=== PATIENT | male | born 1950 | race Caucasian/White ===

== ENCOUNTER 2020-05-27 17:24 | Inpatient (IN) ==
[2020-05-27] MEDS ORDERED: (Dulaglutide [Trulicity] 1.5 MG) SQ SCH (19:00)
[2020-05-27] MEDS ORDERED: (Alendronate Sodium 70 MG) PO SCH (19:00)
[2020-05-27] MEDS: *HR* Metformin 500 MG TABLET PO SCH (20:20)
[2020-05-27] MEDS: Spironolactone 25 MG TABLET PO SCH (20:22)
[2020-05-27] MEDS: Melatonin 3 MG TABLET PO PRN (23:15)
[2020-05-28] MEDS: *HR* Enoxaparin 40 MG/0.4 ML SYRINGE SQ SCH (04:46)
[2020-05-28 05:45] LABS: Basophils % 0.1 %; Eosinophils # 0.2 K/mcL (0.0-0.6); Hematocrit 38.8 % (37.5-50.1); Hemoglobin 12.4 g/dL (12.9-16.9); Immature Granulocytes % 6.7 % (0-4); Lymphocytes # 2.1 K/mcL (0.6-4.6); Lymphocytes % 11.4 %; Mean Corpuscular Hemoglobin 29.7 pg (28.0-33.3); Mean Platelet Volume 9.6 fL (9.4-12.4); Monocytes # 1.2 K/mcL (0.0-1.3); Monocytes % 6.7 %; Neutrophils # 13.5 K/mcL (1.6-8.9); Platelet Count 754 K/mcL (140-400); Red Blood Count 4.17 M/mcL (4.19-5.50); Red Cell Distribution Width 13.5 % (11.5-14.5); Segmented Neutrophils % 74.1 %; White Blood Count 18.2 K/mcL (4.3-11.1)
[2020-05-28 06:00] LABS: Alanine Aminotransferase 45 Units/L (7-52); Alkaline Phosphatase 65 Units/L (34-104); Aspartate Amino Transferase 21 Units/L (13-39); BUN/Creatinine Ratio 32 (6-26); Bilirubin,Total 0.4 mg/dL (0.3-1.0); Blood Urea Nitrogen 29 mg/dL (8-23); Calcium 8.7 mg/dL (8.6-10.3); Carbon Dioxide 28 mEq/L (23-29); Chloride 97 mEq/L (98-107); Glucose 194 mg/dL (70-105); Magnesium 1.7 mg/dL (1.6-2.6); Osmolality,Calculated 285 (280-300); Potassium 4.1 mEq/L (3.5-5.1); Sodium 132 mEq/L (136-145); eGFR For African Americans > 60 (> 60); eGFR For Non-African Americans > 60 (> 60)
[2020-05-28] MEDS ORDERED: D5% in Water 1,000 ML IVC PRN (07:38)
[2020-05-28] MEDS ORDERED: *HR* Dextrose 50 % in Water (Vial) 50 ML VIAL IVP PRN (07:38)
[2020-05-28] MEDS ORDERED: Dextrose Gel 15 GM/37.5 ML TUBE PO PRN ×2 (07:38)
[2020-05-28 08:58] LABS: Ferritin 247 ng/mL (20-250)
[2020-05-28 09:43] LABS: C-Reactive Protein 14 mg/L (Less than 10)
[2020-05-28] MEDS: Furosemide 40 MG/4 ML VIAL IVP SCH (09:46)
[2020-05-28] MEDS: Cholecalciferol (D-3) 1,000 UNIT (25MCG) TABLET PO SCH (09:46)
[2020-05-28] MEDS: Aspirin Enteric Coated 81 MG Tablet PO SCH (09:46)
[2020-05-28] MEDS: Insulin LISPRO 300 UNITS/3 ML VIAL SUBQ SCH ×2 (12:37→16:58)
[2020-05-28] MEDS ORDERED: Ondansetron 4 MG/2 ML VIAL IVP PRN (13:41)
[2020-05-28] MEDS ORDERED: Ondansetron ODT 4 MG TAB.RAPDIS SL PRN (13:41)
[2020-05-28] MEDS ORDERED: MOM Conc 10 ML UD.LIQ PO PRN (13:43)
[2020-05-28] MEDS: levoFLOXacin 750 MG TABLET PO SCH (14:20)
[2020-05-28] MEDS: dexAMETHasone 4 MG TABLET PO SCH (14:20)
[2020-05-28] MEDS: Ipratropium 1 PUFF INHALER IH SCH ×2 (15:18→19:41)
[2020-05-28] MEDS: Spironolactone 25 MG TABLET PO SCH (16:57)
[2020-05-28] MEDS ORDERED: Insulin LISPRO 300 UNITS/3 ML VIAL SUBQ SCH (21:00)
[2020-05-28] MEDS: *HR* Metformin 500 MG TABLET PO SCH (21:26)
[2020-05-28] MEDS: Sennosides/Docusate Sodium TABLET PO SCH (21:26)
[2020-05-28] MEDS: Melatonin 3 MG TABLET PO PRN (21:27)
[2020-05-29] MEDS: Ipratropium 1 PUFF INHALER IH SCH ×3 (04:03→16:12)
[2020-05-29] MEDS: *HR* Enoxaparin 40 MG/0.4 ML SYRINGE SQ SCH (04:58)
[2020-05-29] MEDS: levoFLOXacin 750 MG TABLET PO SCH (08:27)
[2020-05-29] MEDS: Aspirin Enteric Coated 81 MG Tablet PO SCH (08:27)
[2020-05-29] MEDS: Cholecalciferol (D-3) 1,000 UNIT (25MCG) TABLET PO SCH (08:27)
[2020-05-29] MEDS: dexAMETHasone 4 MG TABLET PO SCH (08:28)
[2020-05-29] MEDS: Furosemide 40 MG/4 ML VIAL IVP SCH (08:28)
[2020-05-29] MEDS: Insulin LISPRO 300 UNITS/3 ML VIAL SUBQ SCH ×2 (08:29→11:43)
[2020-05-29] MEDS: Sennosides/Docusate Sodium TABLET PO SCH (08:29)
[2020-05-29 10:31] LABS: Hematocrit 43.9 % (37.5-50.1); Mean Corpuscular HGB Conc 31.9 g/dL (31.6-35.5); Mean Corpuscular Hemoglobin 29.8 pg (28.0-33.3); Mean Corpuscular Volume 93.4 fL (83.0-100.0); Mean Platelet Volume 9.4 fL (9.4-12.4); Platelet Count 925 K/mcL (140-400); Red Cell Distribution Width 13.4 % (11.5-14.5); White Blood Count 18.2 K/mcL (4.3-11.1)
[2020-05-29 10:48] LABS: BUN/Creatinine Ratio 27 (6-26); Blood Urea Nitrogen 30 mg/dL (8-23); Carbon Dioxide 27 mEq/L (23-29); Chloride 94 mEq/L (98-107); Glucose 261 mg/dL (70-105); Magnesium 1.6 mg/dL (1.6-2.6); Osmolality,Calculated 285 (280-300); Potassium 4.2 mEq/L (3.5-5.1); Sodium 130 mEq/L (136-145); eGFR For African Americans > 60 (> 60); eGFR For Non-African Americans > 60 (> 60)
[2020-05-29 11:30] VITALS: BP 109/68
== END 2020-05-29 16:44 | disposition other institution (70) | DRG 177 ==
LOC: INPGRE 18:06
PROVIDERS: ADMIT Family Medicine; ATTEND Family Medicine

== ENCOUNTER 2020-05-29 14:45 | Inpatient (IN) ==
[2020-05-29] MEDS ORDERED: (Dulaglutide [Trulicity] 1.5 MG) SQ SCH (17:00)
[2020-05-29] MEDS ORDERED: (Alendronate Sodium 70 MG) PO SCH (17:00)
[2020-05-29] MEDS ORDERED: Ondansetron 4 MG/2 ML VIAL IVP PRN (17:16)
[2020-05-29] MEDS ORDERED: MOM Conc 10 ML UD.LIQ PO PRN (17:16)
[2020-05-29] MEDS ORDERED: Ondansetron ODT 4 MG TAB.RAPDIS SL PRN (17:18)
[2020-05-29] MEDS ORDERED: Ipratropium 1 PUFF INHALER IH PRN (17:29)
[2020-05-29] MEDS: Spironolactone 25 MG TABLET PO SCH (17:58)
[2020-05-29] MEDS: Insulin LISPRO 300 UNITS/3 ML VIAL SUBQ SCH ×2 (17:58→21:15)
[2020-05-29] MEDS: Sennosides/Docusate Sodium TABLET PO SCH (21:15)
[2020-05-29] MEDS: *HR* Metformin 500 MG TABLET PO SCH (21:16)
[2020-05-29] MEDS: Melatonin 3 MG TABLET PO PRN (21:16)
[2020-05-30] MEDS: *HR* Enoxaparin 40 MG/0.4 ML SYRINGE SQ SCH (05:50)
[2020-05-30] MEDS ORDERED: Insulin LISPRO 300 UNITS/3 ML VIAL SUBQ SCH (07:30)
[2020-05-30] MEDS: Cholecalciferol (D-3) 1,000 UNIT (25MCG) TABLET PO SCH (08:12)
[2020-05-30] MEDS: *HR* Metformin 500 MG TABLET PO SCH ×2 (08:12→20:45)
[2020-05-30] MEDS: Aspirin Enteric Coated 81 MG Tablet PO SCH (08:12)
[2020-05-30] MEDS: levoFLOXacin 750 MG TABLET PO SCH (08:13)
[2020-05-30] MEDS: Sennosides/Docusate Sodium TABLET PO SCH ×2 (08:13→21:01)
[2020-05-30 08:15] LABS: Basophils % 0.1 %; Eosinophils # 0.1 K/mcL (0.0-0.6); Eosinophils % 0.6 %; Hematocrit 41.6 % (37.5-50.1); Hemoglobin 13.5 g/dL (12.9-16.9); Immature Granulocytes % 8.9 % (0-4); Lymphocytes # 1.9 K/mcL (0.6-4.6); Lymphocytes % 9.8 %; Mean Corpuscular HGB Conc 32.5 g/dL (31.6-35.5); Mean Corpuscular Hemoglobin 30.1 pg (28.0-33.3); Mean Corpuscular Volume 92.7 fL (83.0-100.0); Mean Platelet Volume 9.5 fL (9.4-12.4); Monocytes # 1.4 K/mcL (0.0-1.3); Monocytes % 7.3 %; Platelet Count 827 K/mcL (140-400); Red Blood Count 4.49 M/mcL (4.19-5.50); Red Cell Distribution Width 13.6 % (11.5-14.5); Segmented Neutrophils % 73.3 %; White Blood Count 18.9 K/mcL (4.3-11.1)
[2020-05-30] MEDS: Insulin LISPRO 300 UNITS/3 ML VIAL SUBQ SCH ×4 (08:18→20:46)
[2020-05-30 08:23] LABS: Neutrophils # 13.9 K/mcL (1.6-8.9)
[2020-05-30 08:28] LABS: Alanine Aminotransferase 51 Units/L (7-52); Albumin 3.3 g/dL (3.5-5.7); Albumin/Globulin Ratio 1.2 (1.1-2.2); Alkaline Phosphatase 70 Units/L (34-104); Aspartate Amino Transferase 20 Units/L (13-39); BUN/Creatinine Ratio 30 (6-26); Bilirubin,Total 0.5 mg/dL (0.3-1.0); Blood Urea Nitrogen 29 mg/dL (8-23); Calcium 8.9 mg/dL (8.6-10.3); Carbon Dioxide 27 mEq/L (23-29); Chloride 95 mEq/L (98-107); Globulin 2.7 g/dL (2.4-3.5); Glucose 188 mg/dL (70-105); Magnesium 1.8 mg/dL (1.6-2.6); Osmolality,Calculated 277 (280-300); Potassium 4.4 mEq/L (3.5-5.1); Sodium 128 mEq/L (136-145); eGFR For African Americans > 60 (> 60); eGFR For Non-African Americans > 60 (> 60)
[2020-05-30 08:38] LABS: Large Platelets Present (Not Present); Platelet Estimate Marked Increase (Normal)
[2020-05-30] MEDS ORDERED: Cholecalciferol (D-3) 1,000 UNIT (25MCG) TABLET PO SCH (09:00)
[2020-05-30] MEDS ORDERED: dexAMETHasone 4 MG TABLET PO SCH (09:00)
[2020-05-30] MEDS ORDERED: Furosemide 40 MG/4 ML VIAL IVP SCH (09:00)
[2020-05-30 13:08] LABS: C-Reactive Protein < 5 mg/L (Less than 10)
[2020-05-30 13:25] LABS: Ferritin 406 ng/mL (20-250)
[2020-05-30] MEDS: 0.9 % Sodium Chloride 1,000 ML IVC SCH (16:29)
[2020-05-30] MEDS: Spironolactone 25 MG TABLET PO SCH (16:29)
[2020-05-30] MEDS: Melatonin 3 MG TABLET PO PRN (20:45)
[2020-05-31] MEDS ORDERED: 0.9 % Sodium Chloride 1,000 ML ONE (00:08)
[2020-05-31] MEDS: 0.9 % Sodium Chloride 1,000 ML IVC SCH (00:12)
[2020-05-31] MEDS: *HR* Enoxaparin 40 MG/0.4 ML SYRINGE SQ SCH (05:58)
[2020-05-31 06:11] LABS: Hematocrit 42.2 % (37.5-50.1); Hemoglobin 13.4 g/dL (12.9-16.9); Mean Corpuscular HGB Conc 31.8 g/dL (31.6-35.5); Mean Corpuscular Hemoglobin 29.7 pg (28.0-33.3); Mean Corpuscular Volume 93.6 fL (83.0-100.0); Mean Platelet Volume 9.4 fL (9.4-12.4); Platelet Count 774 K/mcL (140-400); Red Blood Count 4.51 M/mcL (4.19-5.50); Red Cell Distribution Width 13.6 % (11.5-14.5); White Blood Count 17.8 K/mcL (4.3-11.1)
[2020-05-31 06:36] LABS: Alanine Aminotransferase 41 Units/L (7-52); Albumin 3.2 g/dL (3.5-5.7); Albumin/Globulin Ratio 1.3 (1.1-2.2); Alkaline Phosphatase 66 Units/L (34-104); Aspartate Amino Transferase 13 Units/L (13-39); BUN/Creatinine Ratio 31 (6-26); Bilirubin,Total 0.4 mg/dL (0.3-1.0); Blood Urea Nitrogen 30 mg/dL (8-23); Calcium 8.7 mg/dL (8.6-10.3); Carbon Dioxide 27 mEq/L (23-29); Chloride 98 mEq/L (98-107); Globulin 2.5 g/dL (2.4-3.5); Glucose 184 mg/dL (70-105); Magnesium 1.8 mg/dL (1.6-2.6); Osmolality,Calculated 281 (280-300); Sodium 130 mEq/L (136-145); Total Protein 5.7 g/dL (6.4-8.9); eGFR For African Americans > 60 (> 60); eGFR For Non-African Americans > 60 (> 60)
[2020-05-31] MEDS: levoFLOXacin 750 MG TABLET PO SCH (09:31)
[2020-05-31] MEDS: *HR* Metformin 500 MG TABLET PO SCH ×2 (09:31→21:48)
[2020-05-31] MEDS: Sennosides/Docusate Sodium TABLET PO SCH ×2 (09:31→21:48)
[2020-05-31] MEDS: Aspirin Enteric Coated 81 MG Tablet PO SCH (09:31)
[2020-05-31] MEDS: dexAMETHasone 4 MG TABLET PO SCH (09:33)
[2020-05-31] MEDS: Cholecalciferol (D-3) 1,000 UNIT (25MCG) TABLET PO SCH (09:33)
[2020-05-31] MEDS: Insulin LISPRO 300 UNITS/3 ML VIAL SUBQ SCH ×4 (09:49→21:57)
[2020-05-31 12:50] LABS: C-Reactive Protein < 5 mg/L (Less than 10)
[2020-05-31 13:08] LABS: Ferritin 419 ng/mL (20-250)
[2020-05-31] MEDS: Spironolactone 25 MG TABLET PO SCH (17:26)
[2020-05-31] MEDS: Melatonin 3 MG TABLET PO PRN (21:57)
[2020-06-01] MEDS: *HR* Enoxaparin 40 MG/0.4 ML SYRINGE SQ SCH (05:25)
[2020-06-01] MEDS: Insulin LISPRO 300 UNITS/3 ML VIAL SUBQ SCH ×4 (08:20→21:01)
[2020-06-01] MEDS: Sennosides/Docusate Sodium TABLET PO SCH ×2 (08:26→21:01)
[2020-06-01] MEDS: Cholecalciferol (D-3) 1,000 UNIT (25MCG) TABLET PO SCH (08:27)
[2020-06-01] MEDS: Aspirin Enteric Coated 81 MG Tablet PO SCH (08:27)
[2020-06-01] MEDS: *HR* Metformin 500 MG TABLET PO SCH ×2 (08:27→21:01)
[2020-06-01] MEDS: levoFLOXacin 750 MG TABLET PO SCH (08:27)
[2020-06-01] MEDS: dexAMETHasone 4 MG TABLET PO SCH (08:27)
[2020-06-01] MEDS: Spironolactone 25 MG TABLET PO SCH (17:23)
[2020-06-01] MEDS: Melatonin 3 MG TABLET PO PRN (21:01)
[2020-06-02] MEDS: *HR* Enoxaparin 40 MG/0.4 ML SYRINGE SQ SCH (05:48)
[2020-06-02 05:54] LABS: Hematocrit 40.9 % (37.5-50.1); Hemoglobin 13.2 g/dL (12.9-16.9); Mean Corpuscular HGB Conc 32.3 g/dL (31.6-35.5); Mean Corpuscular Hemoglobin 29.8 pg (28.0-33.3); Mean Corpuscular Volume 92.3 fL (83.0-100.0); Platelet Count 758 K/mcL (140-400); Red Blood Count 4.43 M/mcL (4.19-5.50); Red Cell Distribution Width 13.6 % (11.5-14.5); White Blood Count 17.5 K/mcL (4.3-11.1)
[2020-06-02 06:14] LABS: Alanine Aminotransferase 28 Units/L (7-52); Albumin 3.2 g/dL (3.5-5.7); Albumin/Globulin Ratio 1.4 (1.1-2.2); Alkaline Phosphatase 60 Units/L (34-104); Aspartate Amino Transferase 9 Units/L (13-39); BUN/Creatinine Ratio 28 (6-26); Bilirubin,Total 0.4 mg/dL (0.3-1.0); Blood Urea Nitrogen 25 mg/dL (8-23); Calcium 8.9 mg/dL (8.6-10.3); Carbon Dioxide 27 mEq/L (23-29); Chloride 98 mEq/L (98-107); Globulin 2.3 g/dL (2.4-3.5); Glucose 181 mg/dL (70-105); Magnesium 1.7 mg/dL (1.6-2.6); Osmolality,Calculated 281 (280-300); Potassium 4.8 mEq/L (3.5-5.1); Sodium 131 mEq/L (136-145); Total Protein 5.5 g/dL (6.4-8.9); eGFR For African Americans > 60 (> 60); eGFR For Non-African Americans > 60 (> 60)
[2020-06-02] MEDS: Sennosides/Docusate Sodium TABLET PO SCH (08:17)
[2020-06-02] MEDS: levoFLOXacin 750 MG TABLET PO SCH (08:18)
[2020-06-02] MEDS: Aspirin Enteric Coated 81 MG Tablet PO SCH (08:18)
[2020-06-02] MEDS: Cholecalciferol (D-3) 1,000 UNIT (25MCG) TABLET PO SCH (08:18)
[2020-06-02] MEDS: dexAMETHasone 4 MG TABLET PO SCH (08:18)
[2020-06-02] MEDS: *HR* Metformin 500 MG TABLET PO SCH (08:19)
[2020-06-02] MEDS: Insulin LISPRO 300 UNITS/3 ML VIAL SUBQ SCH ×2 (08:23→12:10)
[2020-06-02 08:41] LABS: C-Reactive Protein < 5 mg/L (Less than 10)
[2020-06-02 09:00] LABS: Ferritin 254 ng/mL (20-250)
[2020-06-02 11:07] VITALS: BP 144/83
== END 2020-06-02 17:05 | disposition home health service (06) | DRG 177 ==
LOC: INPGRE 16:32
PROVIDERS: ADMIT Family Medicine; ATTEND Family Medicine